=== PATIENT | male | born 1970 | race Two or more races ===

== ENCOUNTER 2018-11-04 20:44 | Emergency (ER) | payer OTHER ==
[~2018-11-04] VITALS: Ht 182.9 cm; Wt 89.8 kg
[2018-11-04 21:07] VITALS: BP 144/85
== END 2018-11-05 00:48 | disposition home or self-care (01) ==
LOC: ER 20:44
DX: S93.402A Sprain of unspecified ligament of left ankle, initial encounter (principal); S93.401A Sprain of unspecified ligament of right ankle, initial encounter; S86.011A Strain of right Achilles tendon, initial encounter; W20.8XXA Other cause of strike by thrown, projected or falling object, initial encounter; Y93.89 Activity, other specified; Y92.69 Other specified industrial and construction area as the place of occurrence of the external cause; Y99.8 Other external cause status
CPT/HCPCS: 73610